=== PATIENT | male | born 1980 | race Caucasian/White ===

== ENCOUNTER 2018-01-30 10:33 | Emergency (ER) | payer MEDICARE, MEDICAID ==
[2018-01-30] MEDS ORDERED: KETOROLAC TROMETHAMINE 60 MG/2 ML SDV IM ONE (12:29)
[2018-01-30] MEDS ORDERED: MORPHINE SULFATE 10 MG/ML INJ IM ONE (12:29)
--- NOTE | 2018-01-30 13:27 | RADIOLOGY REPORT (SQ) ---
EXAM DESCRIPTION: CT LUMBAR SPINE WITHOUT COMPLETED DATE/TIME: 01/30/2018 1:12 pm REASON FOR STUDY: hx multiple back surgeries, fell, pain COMPARISON: None. TECHNIQUE: Axial images acquired through the lumbar spine without intravenous contrast. Images revi ewed with lung, soft tissue and bone windows. Reconstructed coronal and sagittal MPR images reviewed . All images stored on PACS. All CT scanners at this facility use dose modulation, iterative reconstruction, and/or weight based d osing when appropriate to reduce radiation dose to as low as reasonably achievable (ALARA). [facility]: Dose Right [facility]: CareDose [facility]: Dose Right [facility]: Teradose 4D [facility]: [employer] RADIATION DOSE: mGy. LIMITATIONS: None. FINDINGS: SEGMENTATION: Normal. No transitional anatomy. ALIGNMENT: There is minimal retrolisthesis of L5 on S1. VERTEBRAL BODIES: No fractures. No dislocation. No acute findings. DISCS: There are postsurgical changes at L4-L5 and L5-S1. There is disc space narrowing and endplate changes. There is mild annular bulging at 3 4. No high-grade central canal stenosis. PEDICLES, TRANSVERSE PROCESSES: No fractures. No dislocation. No acute findings. FACETS, POSTERIOR ELEMENTS: No fractures. No dislocation. No spinal stenosis. HARDWARE: None in the spine. VISUALIZED RIBS: No fractures. SOFT TISSUES: No significant or acute finding in adjacent soft tissues. OTHER: No other significant finding. IMPRESSION: Postsurgical and degenerative changes. No acute findings in the lumbar spine. TECHNICAL DOCUMENTATION: JOB ID: [id number] Quality ID # [id number]: Final reports with documentation of one or more dose reduction techniques (e.g., Au tomated exposure control, adjustment of the mA and/or kV according to patient size, use of iterative reconstruction technique) 2010 [employer]- All Rights Reserved Reading location - IP/workstation name: [email or web address]
--- NOTE | 2018-01-30 13:28 | RADIOLOGY REPORT (SQ) ---
EXAM DESCRIPTION: CT THORACIC SPINE WITHOUT COMPLETED DATE/TIME: 01/30/2018 1:12 pm REASON FOR STUDY: hx multiple back surgeries, fell, pain COMPARISON: None. TECHNIQUE: Axial images acquired through the thoracic spine without intravenous contrast. Images re viewed with lung, soft tissue and bone windows. Reconstructed coronal and sagittal MPR images review ed. Images stored on PACS. All CT scanners at this facility use dose modulation, iterative reconstruction, and/or weight based d osing when appropriate to reduce radiation dose to as low as reasonably achievable (ALARA). [facility]: Dose Right [facility]: CareDose [facility]: Dose Right [facility]: Teradose 4D [facility]: [employer] RADIATION DOSE: CT Rad equipment meets quality standard of care and radiation dose reduction techniq ues were employed. CTDIvol: 48.3 mGy. DLP: 1775 mGy-cm. mGy. LIMITATIONS: None. FINDINGS: VISUALIZED LUNGS: No acute opacities. No pneumothorax. SOFT TISSUES: No soft tissue swelling. No masses. VERTEBRAL BODIES: Multiple Schmorl's nodes are identified affecting the superior and inferior endplat es of multiple thoracic vertebra most consistent with Scheuermann's disease. No acute vertebral comp ressions are identified. DISCS: No significant disc space narrowing. ALIGNMENT: Normal. TRANSVERSE PROCESSES, POSTERIOR ELEMENTS: No fractures. No dislocation. No acute findings. HARDWARE: None in the spine. VISUALIZED RIBS: No fractures. OTHER: No other significant finding. IMPRESSION: Findings consistent with Scheuermann's disease. Other findings as noted above TECHNICAL DOCUMENTATION: JOB ID: [id number] Quality ID # [id number]: Final reports with documentation of one or more dose reduction techniques (e.g., Au tomated exposure control, adjustment of the mA and/or kV according to patient size, use of iterative reconstruction technique) 2010 [employer] All Rights Reserved Reading location - IP/workstation name: [email or web address]
[2018-01-30] MEDS ORDERED: LIDOCAINE 5% (700 MG) TRANSDERMAL ADH..PATCH TP ONE (14:09)
--- NOTE | 2018-01-30 14:09 | ER Document Report ---
HPI - HPI Time Seen by Provider: 01/30/18 12:00 Pain Level: 5 Notes: Patient is a 37-year-old male who presents to the emergency department with chief complaint of low back pain. He reports that approximately 1 month ago he stepped wrong off of his porch and fell. He reports that he has had 6 back surgeries in the past. States he does not take any chronic pain medications. He states that he saw his primary care provider for this, she referred him for an outpatient MRI, he came here today to get his outpatient MRI however he has metal shrapnel in his chest so they would not do the MRI today. Patient's primary care provider apparently told him to come to the emergency department for pain control as patient has been in severe pain for several days. Patient denies any bowel incontinence, reports he is able to urinate without difficulty. Denies any saddle anesthesia. Past Medical History - General Information source: Patient - Social History Smoking Status: Current Every Day Smoker Chew tobacco use (# tins/day): No Frequency of alcohol use: Occasional Drug Abuse: None Family History: Reviewed & Not Pertinent Patient has suicidal ideation: No Patient has homicidal ideation: No - Medical History Medical History: Negative Renal/ Medical History: Denies: Hx Peritoneal Dialysis Past Surgical History: Reports: Hx Appendectomy, Hx Cholecystectomy, Hx Orthopedic Surgery - back surgery X6, right arm Vertical Provider Document - CONSTITUTIONAL Notes: PHYSICAL EXAMINATION: GENERAL: Well-appearing, well-nourished and in no acute distress. HEAD: Atraumatic, normocephalic. EYES: Pupils equal round extraocular movements intact, conjunctiva are normal. ENT: Nares patent NECK: Normal range of motion LUNGS: No respiratory distress Musculoskeletal: Normal range of motion, tenderness to palpation along thoracic and lumbar vertebrae. There is also tenderness to palpation to lumbar paraspinous muscles. Patient does ambulate with a steady gait. NEUROLOGICAL: Normal speech, normal gait. PSYCH: Normal mood, normal affect. SKIN: Warm, Dry, normal turgor, no rashes or lesions noted. - INFECTION CONTROL TRAVEL OUTSIDE OF THE [place] IN LAST 30 DAYS: No Course - Re-evaluation Re-evalutation: No acute findings noted on CT of the lumbar and thoracic spine, chronic findings as outlined on the radiology reports. Patient does endorse some relief of his pain after administration of IM Toradol and IM morphine. Patient will be discharged home in stable condition with plan to follow-up with primary care on Friday. - Vital Signs Vital signs: Temp Pulse Resp BP Pulse Ox 98.3 F 85 18 169/94 H 99 01/30/18 10:36 01/30/18 10:36 01/30/18 10:36 01/30/18 10:36 01/30/18 10:36 Discharge - Discharge Clinical Impression: Back pain Qualifiers: Back pain location: low back pain Chronicity: chronic Back pain laterality: unspecified Sciatica presence: unspecified whether sciatica present Qualified Code(s): M54.5 - Low back pain Condition: Stable Disposition: HOME, SELF-CARE Additional Instructions: LOW BACK PAIN: Three out of every four people will have an episode of disabling back pain during their lifetime. Most commonly the pain is due to straining of the muscles and ligaments in the low back. Usual treatment includes: (1) Rest on a firm surface. Avoid lying on your stomach. (2) Ice pack the painful area. After a few days, gentle heat may be used intermittently to relax the area, or ice packs can be continued. (3) Medication may be needed -- muscle relaxers and antiinflammatory medicines are commonly used. (4) As the back improves, exercises are prescribed to strengthen the back and abdominal muscles. Your doctor will advise you on the proper care for your back at each stage in your recovery. You may be better in a few days -- or healing may take several weeks. If new symptoms of a "herniated disc" (radiation of pain, numbness, or tingling down the back of the leg or weakness in the leg) occur, you should be re-examined. Further testing may be necessary. PAIN MEDICATION INJECTION: You have received an injection of a pain medication. You should experience significant pain relief within 45 minutes. If this injection was a narcotic -- it will impair your judgement, slow your reaction time and make you sleepy (as well as relieve your pain). Narcotics also can cause nausea. You should not drive, work with machinery, or perform any task requiring mental alertness until all effects of the medication are gone -- six to eight hours. Do not take any alcohol, or sedatives, and do not take any other medication without checking with your physician. ORAL NARCOTIC MEDICATION: You have been given a prescription for pain control. This medication is a narcotic. It's best taken with food, as nausea can result if taken on an empty stomach. Don't operate machinery or drive within six hours of taking this medication. Do not combine this medicine with alcohol, or with any medication which can cause sedation (such as cold tablets or sleeping pills) unless you get permission from the physician. Narcotics tend to cause constipation. If possible, drink plenty of fluids and eat a diet high in fiber and fruits. Please be aware that prescription narcotics also have the potential for abuse. People become addicted to these medications because of the general sense of wellbeing that they induce. This feeling along with a significant reduction in tension, anxiety, and aggression provides a stimulating seductive quality to these drugs. Once your pain is under control, we encourage you to discard your unused narcotics. ICE PACKS: Apply ice packs frequently against the painful area. Many different schedules are recommended, such as "20 minutes on, 20 minutes off" or "one hour ice, two hours rest." If you need to work, you may need to go longer between ice treatments. You should plan to have the area ice packed AT LEAST one fourth of the time. The ice should be applied over the wrap, tape, or splint, or over a layer of cloth -- not directly against the skin. Some ice bags have a built-in cloth and can be put directly on the skin. WARM PACKS: After approximately two days, apply gentle heat (such as a heating pad or hot water bottle) for about 20 to 30 minutes about every two hours -- at least four times daily. Warmth and elevation will help you make a more rapid recovery , and will ease the pain considerably. Do not use HOT heat, and never apply heat for longer than 30 minutes. The continuous heat can invisibly damage skin and muscles -- even when no burn is seen on the surface. Damaged muscles can make you MORE sore. FOLLOW-UP CARE: If you have been referred to a physician for follow-up care, call the physician s office for an appointment as you were instructed or within the next two days. If you experience worsening or a significant change in your symptoms, notify the physician immediately or return to the Emergency Department at any time for re-evaluation. Please take pain medications as prescribed. Use the ibuprofen take 1 tablet every 8 hours. Use the Lidoderm patches as directed. Take your muscle relaxer that you have at home. Follow-up with your primary care, keep the appointment you have scheduled with them for Friday. You probably need to go back to [place] to see her coverage specialist rn sooner rather than later. Prescriptions: Ibuprofen [Motrin 800 mg Tablet] 800 mg PO Q8H PRN #40 tab PRN Reason: Lidocaine [Lidoderm 5% (700 mg) Transdermal Patch] 1 patch TP DAILY #30 adh..patch Oxycodone HCl [Oxycontin Ir 5 Mg Tablet] 1 mg PO Q6H PRN #15 tablet PRN Reason: For Pain Referrals: ANDREW MCDOWELL, REGRINDER OPERATOR-C [Primary Care Provider] - Follow up as needed
[2018-01-30 14:14] VITALS: BP 150/95
== END 2018-01-30 14:20 | disposition home or self-care (01) ==
LOC: ER 10:33
DX: M54.5 Low back pain (principal); F17.200 Nicotine dependence, unspecified, uncomplicated; Z90.49 Acquired absence of other specified parts of digestive tract
CPT/HCPCS: 99284; 96372; 70360; 72128; 72131; J1885; J2270

== ENCOUNTER → 2018-01-30 | Outpatient (CLI) | payer MEDICARE, MEDICAID ==
--- NOTE | 2018-01-30 10:31 | RADIOLOGY REPORT (SQ) ---
EXAM DESCRIPTION: SOFT TISSUE NECK COMPLETED DATE/TIME: 01/30/2018 10:06 am REASON FOR STUDY: foreign body eval M54.5 LOW BACK PAIN COMPARISON: None. NUMBER OF VIEWS: Two views. TECHNIQUE: AP and lateral radiographic image of the soft tissues of the neck. LIMITATIONS: None. FINDINGS: EPIGLOTTIS: Normal. Contour normal. Aryepiglottic folds normal. PREVERTEBRAL SOFT TISSUES: Normal. No soft tissue swelling. SUBGLOTTIC AREA: Normal. No narrowing. RETROPHARYNGEAL SPACE: Normal. No soft tissue masses. BONES: No significant findings. LUNG APICES: Normal. OTHER: There is a linear radiopaque foreign body in the right supraclavicular region. This is seen o n both the AP and lateral projections. IMPRESSION: Linear radiopaque foreign body overlying the right supraclavicular region. TECHNICAL DOCUMENTATION: JOB ID: [id number] [employer]- All Rights Reserved Reading location - IP/workstation name: [email or web address]
== END ==
LOC: RAD 08:51
PROVIDERS: ATTEND Nurse Practitioner Family
DX: M54.5 Low back pain (principal)
CPT/HCPCS: 70360

== ENCOUNTER 2018-10-15 11:04 | Emergency (ER) | payer MEDICARE, MEDICAID ==
[2018-10-15] MEDS ORDERED: CYCLOBENZAPRINE HCL 10 MG TABLET PO ONE (12:35)
[2018-10-15] MEDS ORDERED: KETOROLAC TROMETHAMINE INJ/PF 30 MG/1 ML SDV IM ONE (12:35)
[2018-10-15] MEDS ORDERED: OXYCODONE-ACETAMINOPHEN 5-325 MG TABLET PO ONE (12:35)
--- NOTE | 2018-10-15 12:41 | ER Document Report ---
HPI - HPI Time Seen by Provider: 10/15/18 12:22 Pain Level: 5 Context: Patient is a 38-year-old male presents to the emergency department with a chief complaint of right lower back pain. Patient states he does have a history of 7 lumbar surgeries with his last being in 2014. Patient states on Friday he was loading a lawnmower into a truck with his father when he twisted to the left which caused severe pain in the right lower back. Patient states he has taken Tylenol, Advil and multiple BC powders without relief. Patient reports the back pain is primarily located in the right lower back and radiates down the right leg. Patient states at times it feels like a tingling radiating down the right leg. Patient denies numbness or tingling to the groin or rectal area. Patient reports that since the injury he has had 2 episodes where he urinated a small amount on himself. Patient states the last episode was yesterday and since he has been able to control his bladder without any difficulty. Patient denies loss of bowel function. Denies IV drug use. Past Medical History - General Information source: Patient - Social History Smoking Status: Unknown if Ever Smoked Drug Abuse: None Lives with: Family Family History: Reviewed & Not Pertinent - Past Medical History Cardiac Medical History: Reports: None Pulmonary Medical History: Reports: None EENT Medical History: Reports: None Neurological Medical History: Reports: None Endocrine Medical History: Reports: None Renal/ Medical History: Reports: None. Denies: Hx Peritoneal Dialysis Malignancy Medical History: Reports None GI Medical History: Reports: None Musculoskeletal Medical History: Reports None Skin Medical History: Reports None Psychiatric Medical History: Reports: None Traumatic Medical History: Reports: None Infectious Medical History: Reports: None Past Surgical History: Reports: Hx Appendectomy, Hx Cholecystectomy, Hx Orthopedic Surgery - back surgery X6, right arm Vertical Provider Document - CONSTITUTIONAL Agree With Documented VS: Yes Exam Limitations: No Limitations General Appearance: No Apparent Distress - INFECTION CONTROL TRAVEL OUTSIDE OF THE [place] IN LAST 30 DAYS: No - HEENT HEENT: Atraumatic, Normocephalic, PERRLA - NECK Neck: Normal Inspection - RESPIRATORY Respiratory: Breath Sounds Normal, No Respiratory Distress - CARDIOVASCULAR Cardiovascular: Regular Rate, Regular Rhythm - GI/ABDOMEN Gastrointestinal: Abdomen Soft, Abdomen Non-Tender, No Organomegaly, Normal Bowel Sounds - BACK Notes: Healed vertical scar noted over the lumbar spine, no erythema or swelling. Right paraspinal tenderness noted, no swelling or redness. - NEURO Level of Consciousness: Awake, Alert, Appropriate - DERM Integumentary: Warm, Dry, No Rash Course - Re-evaluation Re-evalutation: 10/15/18 13:25 Patient's rectal examination was benign, patient did have great rectal tone, there was no numbness or tingling reported around the rectum. Patient did not have any numbness or decreased sensation to the inner thighs. Patient did have tenderness to the right buttocks. There was no bruising or edema or erythema noted. Patient has been ambulating around the department with a steady gait in no acute distress. Patient does have a follow-up with his primary care physician on Friday. Patient states he has been able to control his bowels and empty his bladder completely. I did inform the patient to return if symptoms worsen to include numbness and tingling to the lower extremities, loss of bowel or bladder or inability to empty your bladder, severe pain or any other concerning signs or symptoms. At time of discharge patient is requesting oxycodone without the acetaminophen. I did ask if the patient was allergic or if he had any liver problems. Patient states he just feels like the oxycodone works better without the Tylenol and he feels like he has been taking a lot of Tylenol recently. I did inform the patient that I would only give him a few Felda to last him throughout the and that if he required additional medications he needed to see his primary care physician on Friday. Patient was in agreement of Toradol and Flexeril as muscle relaxer. Patient aware not to drive while on these medications. - Vital Signs Vital signs: Temp Pulse Resp BP Pulse Ox 97.9 F 81 18 150/85 H 99 10/15/18 11:10 10/15/18 11:10 10/15/18 11:10 10/15/18 11:10 10/15/18 11:10 Discharge - Discharge Clinical Impression: Back pain Qualifiers: Back pain location: low back pain Chronicity: chronic Back pain laterality: right Sciatica presence: with sciatica Sciatica laterality: sciatica of right side Qualified Code(s): M54.41 - Lumbago with sciatica, right side Condition: Stable Disposition: HOME, SELF-CARE Instructions: Ice Packs ([facility]), Low Back Pain ([facility]), Muscle Strain ([facility]), Oral Narcotic Medication ([facility]), Pain Medication Injection ([facility]), Warm Packs ([facility]) Additional Instructions: Today you were seen in the emergency department for back pain after an injury that occurred on Friday. We did prescribe you Flexeril which is a muscle relaxer as well as Toradol which is an anti-inflammatory and a few oral narcotics to go home with. Please return to the emergency department for any worsening signs or symptoms to include loss of bowel or bladder, inability to empty the bladder, fever, or any other concerning signs or symptoms. Please follow-up with your primary care physician as scheduled on Friday. Prescriptions: Ketorolac Tromethamine [Toradol 10 mg Tablet] 10 mg PO Q6HP PRN #12 tablet PRN Reason: Cyclobenzaprine HCl [Flexeril 10 mg Tablet] 10 mg PO TID #10 tablet Hydrocodone/Acetaminophen [Felda 5-325 mg Tablet] 1 tab PO Q6 #8 tablet Referrals: ANDREW MCDOWELL FNP-C [Primary Care Provider] - Follow up as needed
[2018-10-15 13:38] VITALS: BP 150/90
== END 2018-10-15 13:50 | disposition home or self-care (01) ==
LOC: ER 11:04
DX: G89.29 Other chronic pain (principal); M54.41 Lumbago with sciatica, right side; X50.0XXA Overexertion from strenuous movement or load, initial encounter; Y93.89 Activity, other specified; R32 Unspecified urinary incontinence; Z98.890 Other specified postprocedural states
CPT/HCPCS: 99283; 96372; A9270 ×2; J1885